=== PATIENT | male | born 1975 | race Hispanic/Latino ===

== ENCOUNTER 2018-07-07 05:59 | Day surgery (SDC) | payer BC, OTHER ==
[2018-07-07] MEDS ORDERED: TETRACAINE 0.5% OD PRN (06:00)
[2018-07-07] MEDS ORDERED: MYDRIACYL OD SCH (06:00)
[2018-07-07] MEDS ORDERED: AK-Dilate OD SCH (06:00)
[2018-07-07] MEDS ORDERED: VIGAMOX OD SCH (06:00)
[2018-07-07] MEDS ORDERED: PRED FORTE 1% OD SCH (10:00)
== END 2018-07-07 06:00 | disposition home or self-care (01) ==
LOC: OR 05:59
DX: H26.9 Unspecified cataract (principal); E78.00 Pure hypercholesterolemia, unspecified; G47.30 Sleep apnea, unspecified; K21.9 Gastro-esophageal reflux disease without esophagitis; I10 Essential (primary) hypertension; Z53.8 Procedure and treatment not carried out for other reasons; Z98.890 Other specified postprocedural states; Z90.49 Acquired absence of other specified parts of digestive tract; Z79.899 Other long term (current) drug therapy; Z98.42 Cataract extraction status, left eye; Z98.41 Cataract extraction status, right eye

== ENCOUNTER 2018-07-21 06:49 | Day surgery (SDC) | payer OTHER ==
[~2018-07-21 06:49] MED LIST: TETRACAINE 0.5% OS PRN
[2018-07-21] MEDS: VIGAMOX OS SCH ×3 (08:40→08:51)
[2018-07-21] MEDS: AK-Dilate OS SCH ×3 (08:42→08:52)
[2018-07-21] MEDS: MYDRIACYL OS SCH ×3 (08:43→08:55)
--- NOTE | 2018-07-21 08:53 | Anesthesia Consultation ---
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) SOB: No COPD: No Home Oxygen Therapy: No Hx Sleep Apnea: Yes (noncompliant with CPAP) - Cardiovascular System Hx Hypertension: Yes (took amlodipine today) Hx Heart Attack/AMI: No Hx Percutaneous Transluminal Coronary Angioplasty (PTCA): No - Central Nervous System Hx Seizures: No CVA: No Hx Psychiatric Problems: Yes - Gastrointestinal Hx Gastroesophageal Reflux Disease: Yes (asymptomatic today) - Endocrine Hx Renal Disease: No Hx Liver Disease: Yes (fatty liver) Hx Insulin Dependent Diabetes: Yes Hx Thyroid Disease: No - Other Systems Hx Obesity: Yes - Additional Comments Anesthesia Medical History Comments: No hx anesthetic complications. No recent steroid use.
--- NOTE | 2018-07-21 08:53 | Anesthesia Day of Surgery ---
Anesthesia Day of Surgery - Day of Surgery Patient Examined: Yes Patient H&P Reviewed: Yes Patient is NPO: Yes
[2018-07-21] MEDS ORDERED: PRED FORTE 1% OS SCH (09:00)
[2018-07-21] MEDS ORDERED: SUBLIMAZE ONE (09:35)
[2018-07-21] MEDS ORDERED: VERSED ONE (09:42)
--- NOTE | 2018-07-21 09:46 | Operative Report ---
Operative Report Operative Report: PATIENT'S NAME: DATE OF : DATE OF SURGERY: 07/21/2018 PREOPERATIVE DIAGNOSIS: Cataract right eye POSTOPERATIVE DIAGNOSIS: Same OPERATIVE PROCEDURE: Phacoemulsification with intraocular lens implantation, right eye SURGEON: Mackenzie Langston M.D. RETURN CLERK SURGEON: Whitley Lens: [id number] 23.5 D ANESTHESIA: Monitored anesthesia care in combination with topical and intracameral anesthesia because of the established specific risk of reflux, arrhythmias, or anxiety attacks associated with ocular manipulation, as well as the difficulty of the bender machine to manage such potentially catastrophic events while simultaneously attempting to complete the surgical procedure and was deemed necessary for the patient's safety to have an Photostatic Copy Maker present during the procedure whenever possible. An Photostatic Copy Maker was utilized to regulate the intravenous sedation of the patient so the patient was cooperative yet not asleep in order for the patient to successfully maintain fixation of the eye on the operating light of the microscope. COMPLICATIONS: No surgical complications No blood loss. ALLERGIES: No known drug allergies PROGNOSIS: Excellent INDICATIONS FOR SURGERY: The patient is undergoing surgery in the hopes of eliminating or improving these visual difficulties. PROCEDURE: After arriving at the surgery center, the patient was given topical anesthetic and dilating drops, as noted in the record. The patient was then taken into the operating room and given more anesthetic drops. The eyelids, lashes, and lid margins were scrubbed with Betadine solution, and the patient was draped. The Nurse Photostatic Copy Maker administered IV sedation and monitored the patient during the procedure. The eye was then fixated with a 0.12, and a stab incision was made in the peripheral clear cornea into the anterior chamber. This was made on my left side. Viscoelastic was next used to fill the anterior chamber. The eye was once again fixated with the 0.12 forceps and a keratome was used make an incision in clear cornea peripherally on my right hand side temporally. The capsule forceps were used to open the central anterior capsule and then make a continuous round capsulotomy. Hydrodissection was carried out utilizing a cannula and balanced salt solution to delineate the cortical material from the capsule and the nucleus from the cortical material. The phaco tip was introduced into the eye and used to remove the anterior cortical material in the area of the capsulotomy. Then the phaco tip was buried into the nucleus, and a chopping instrument was introduced into the eye and used to provide countertraction in the nucleus between this instrument and the phaco tip fracturing the nucleus. This procedure was repeated multiple times, providing multiple small segments of the lens, and then the phaco tip was used to remove each of these segments. An I/A tip was then used to remove the remaining cortex. The anterior chamber was refilled with viscoelastic. An one-piece, acrylic intraocular lens was then placed into an inserting cartridge. The tip of the inserting cartridge was introduced into the keratome incision and into the anterior chamber. The implant was gently advanced through the cartridge and into the eye, where it unfolded, and both haptics were placed in the capsular bag, where it centered nicely and appeared to be well fixated. After placement of the intraocular lens, the I~and~A handpiece was placed back into the eye and used to remove the viscoelastic, including viscoelastic that was behind the optic of the intraocular lens. The anterior chamber was then filled with balanced salt solution, and hydration of the wound was used to cause swelling of the wound and more appropriate watertight closure. When the wound was found to be firm, the patient was asked to comment on how bright the light was. If there was no light perception at all or if the light was substantially dimmer than during the rest of the surgery, the amount of fluid in the eye was decompressed to lower the intraocular pressure until the patient could see the b right light again. This was done to avoid any damage or decreased blood flow to the optic nerve. MEDICATIONS APPLIED AT END OF SURGERY: One drop of Pred Forte and Vigamox The patient was given a shield to wear at night and was instructed not to rub or push on the eye. DISCHARGE SUMMARY: The patient was released in stable condition. The patient and those with the patient were given a written sheet of postoperative instructions and counseling on any abnormal laboratory studies. The patient is to see us tomorrow for follow-up in the office and is to call immediately for any difficulties. Mackenzie Langston M.D. Date
--- NOTE | 2018-07-21 09:47 | Short Stay Summary ---
Short Stay Documentation Date of service: 07/21/18 - History H&P: obtained from office - Allergies and Medications Current Medications: Allergies No Known Allergies Allergy (Unverified 07/18/18 16:05) Home Medications Medication Instructions Recorded Confirmed Last Taken Type ALPRAZolam [Xanax TAB] 0.5 mg PO TID 07/06/18 07/18/18 Unknown History ARIPiprazole [Abilify] 15 mg PO HS 07/06/18 07/18/18 Unknown History Albuterol Sulfate [Ventolin HFA] 2 puff IH Q4H PRN 07/06/18 07/18/18 Unknown History Cholestyramine (with Sugar) 378 gm PO DAILY 07/06/18 07/18/18 Unknown History [Cholestyramine Powder] Corticotropin [H.p. Acthar] 80 unit IM Q72H 07/06/18 07/18/18 Unknown History Dicyclomine [Bentyl] 20 mg PO TID 07/06/18 07/18/18 Unknown History Ergocalciferol(Vitamin D2)(Nf) 50 mcg PO DAILY 07/06/18 07/18/18 Unknown History [Vitamin D (Nf)] Escitalopram Oxalate [Lexapro] 20 mg PO HS 07/06/18 07/18/18 Unknown History Fluticasone/Umeclidin/Vilanter 1 each IH DAILY 07/06/18 07/18/18 Unknown History [Trelegy Ellipta 100-62.5-25] Fluvoxamine Maleate [fluvoxaMINE 100 mg PO BID 07/06/18 07/18/18 Unknown History Maleate ER] Folic Acid [Folvite] 1 mg PO QDAY 07/06/18 07/18/18 Unknown History Gabapentin [Neurontin] 100 mg PO HS 07/06/18 07/18/18 Unknown History Insulin Lispro [Humalog 100 10 units SQ BID 07/06/18 07/18/18 Unknown History UNITS/ML Kwikpen] Mesalamine [LiALDA] 4 tab PO AMHY 07/06/18 07/18/18 Unknown History Multivit-Mins/Iron/Folic/Lycop 1 each PO DAILY 07/06/18 07/18/18 Unknown History [Centrum Men's Tablet] Omeprazole 20 mg PO DAILY 07/06/18 07/18/18 Unknown History Pentosan Polysulfate Sodium 200 mg PO BID 07/06/18 07/18/18 Unknown History [Elmiron] Sitagliptin Phos/Metformin HCl 1 each PO BID 07/06/18 07/18/18 Unknown History [Janumet 50-1,000 mg Tablet] Tamsulosin [Flomax] 0.4 mg PO HS 07/06/18 07/18/18 Unknown History amLODIPine [Norvasc] 10 mg PO DAILY 07/06/18 07/18/18 Unknown History lamoTRIgine [LaMICtal] 100 mg PO BID 07/06/18 07/18/18 Unknown History predniSONE [Deltasone] 20 mg PO QDAY 07/06/18 07/18/18 Unknown History traZODone [Desyrel] 150 mg PO QHS 07/06/18 07/18/18 Unknown History Active Medications Moxifloxacin HCl (Vigamox) 1 drops OS Q5MIN KASAN[facility]A Stop: 07/21/18 23:59 Phenylephrine HCl (Ak-Dilate) 1 drops OS Q5MIN [facility] Stop: 07/21/18 23:59 Prednisolone Acetate (Pred Forte 1%) 1 drops OS QID KASANDRA Tetracaine HCl (Tetracaine 0.5%) 1 drops OS Q5M PRN PRN Reason: Pain, Mild (1-3) Stop: 07/21/18 23:59 Tropicamide (Mydriacyl) 1 drops OS Q5MIN [facility] Stop: 07/21/18 23:59 - Brief post op/procedure progress note Date of procedure: 07/21/18 Pre-op diagnosis: left cataract Post-op diagnosis: same Procedure: Phacoemulsification with intraocular lens insertion left eye Anesthesia: MAC, local Surgeon: JESSICA FRANCISCO Estimated blood loss: none Pathology: none Condition: stable - Disposition Condition at discharge: Good Disposition: DC-01 TO HOME OR SELFCARE - Discharge Diagnoses (1) Cortical age-related cataract of left eye Status: Resolved Short Stay Discharge Plan Follow up with: MARNI SILVESTRE MD [Primary Care Provider] - 7 Days
[2018-07-21] MEDS ORDERED: TIMOPTIC OS ONE (11:00)
[2018-07-21] MEDS ORDERED: NORCO 5/325 PO ONE (11:30)
--- NOTE | 2018-07-21 11:32 | Post Anesthesia Evaluation ---
- Post Anesthesia Evaluation Patient Participated: Yes Airway Patent: Yes Stable Respiratory Function: Yes Nausea/Vomiting: No Temp > 96.8F: Yes Pain Manageable: Yes Adequeate Hydration: Yes Anesthesia Complications: No Other Comments: Complained of left eye pain while in recovery which was evaluated by Dr. Langston prior to d/c.
[2018-07-21] MEDS ORDERED: DIAMOX ONE (12:55)
[2018-07-21] MEDS ORDERED: DIAMOX PO ONE (19:50)
[2018-07-21 19:53] VITALS: BP 137/85
== END 2018-07-21 11:12 | disposition home or self-care (01) ==
LOC: OR 06:49
DX: H25.012 Cortical age-related cataract, left eye (principal); E78.00 Pure hypercholesterolemia, unspecified; I10 Essential (primary) hypertension; G47.30 Sleep apnea, unspecified; K21.9 Gastro-esophageal reflux disease without esophagitis; E11.36 Type 2 diabetes mellitus with diabetic cataract; E66.9 Obesity, unspecified; Z68.33 Body mass index [BMI] 33.0-33.9, adult; Z79.899 Other long term (current) drug therapy; Z79.4 Long term (current) use of insulin; Z79.01 Long term (current) use of anticoagulants; Z98.41 Cataract extraction status, right eye; Z98.42 Cataract extraction status, left eye; Z90.49 Acquired absence of other specified parts of digestive tract; Z98.890 Other specified postprocedural states
CPT/HCPCS: 66984; 82962; J2250; J3010; V2632

== ENCOUNTER 2019-11-21 13:59 | Emergency (ER) | payer OTHER ==
[2019-11-21 15:43] LABS: Hematocrit 44.3 % (35.5-45.6); Hemoglobin 14.6 gm/dl (11.8-15.2); Mean Corpuscular HGB Conc 33 % (32-34); Mean Corpuscular Volume 85 fl (84-94); Platelet Count 371 K/mm3 (140-440); Red Blood Count 5.23 M/mm3 (3.65-5.03); Red Cell Distribution Width 18.8 % (13.2-15.2)
[2019-11-21 16:01] LABS: Alanine Aminotransferase 123 units/L (7-56); Albumin 4.7 g/dL (3.9-5); BUN/Creatinine Ratio 20; Blood Urea Nitrogen 18 mg/dL (9-20); Calcium 9.7 mg/dL (8.4-10.2); Hemolysis Index 15
[2019-11-21 17:05] LABS: Eosinophils % (Manual) 0 % (0.0-4.3); Total Cells Counted 100
[2019-11-21 17:06] LABS: Anisocytosis 1+; Macrocytosis Few
[2019-11-21 17:07] LABS: Ovalocytes 1+; Tear Drop Cells Rare
[2019-11-21 17:08] LABS: Large Platelets 1+; Platelet Estimate Consistent w Auto
[2019-11-21] MEDS ORDERED: METOCLOPRAMIDE 10 MG/2 ML INJ IV ONE (17:42)
[2019-11-21] MEDS ORDERED: HYOSCYAMINE SUBL 0.125 MG TAB SL ONE (17:42)
[2019-11-21] MEDS ORDERED: SODIUM CHLORIDE 0.9% 1000 ML 1,000 ML IV ONE (17:42)
[2019-11-21] MEDS ORDERED: MORPHINE 4 MG/1 ML INJ IV ONE (17:43)
--- NOTE | 2019-11-21 18:09 | Emergency Department Report ---
<LAUREN JACOBSON - Last Filed: 11/21/19 19:08> ED N/V/D HPI - General Chief complaint: Abdominal Pain Stated complaint: ABD PAIN Time Seen by Provider: 11/21/19 17:34 Source: patient, EMS Mode of arrival: Wheelchair Limitations: No Limitations - History of Present Illness Initial comments: Patient is a 44-year-old male presents emergency room with complaints of nausea, vomiting, diarrhea that began 4 days ago. He has associated generalized abdominal discomfort. He states that he has not had an episode of vomiting for approximately 8 hours. He states that 4 days ago he had an episode of bright red blood in the stool and states that his stool has appeared darker in color. He states that 5 days ago he had a iron infusion. He states that he went to [facility] a few days ago and had a CT scan at that time which she states was normal. He states that he went to another ER yesterday and had another CT scan which he states was again normal. He states that he cannot get an appointment with his GI doctor at [facility] until December 24. He has been prescribed Percocet and Zofran by another ER. He states that it is not helping. Patient received 12 tablets of oxycodone on 11/16 and 25 tablets of oxycodone on 10/26. He does not report any fever, hematemesis, pus in the stool. he denies any recent travel or sick contacts. - Related Data Home Medications Medication Instructions Recorded Confirmed Last Taken ALPRAZolam [Xanax TAB] 0.5 mg PO TID 07/06/18 07/21/18 07/20/18 ARIPiprazole [Abilify] 15 mg PO HS 07/06/18 07/21/18 07/21/18 Albuterol Sulfate [Ventolin HFA] 2 puff IH Q4H PRN 07/06/18 07/21/18 07/07/18 Cholestyramine (with Sugar) 378 gm PO DAILY 07/06/18 07/21/18 07/20/18 [Cholestyramine Powder] Corticotropin [H.p. Acthar] 80 unit IM Q72H 07/06/18 07/21/18 07/21/18 Dicyclomine [Bentyl] 20 mg PO TID 07/06/18 07/21/18 07/18/18 Ergocalciferol(Vitamin D2)(Nf) 50 mcg PO DAILY 07/06/18 07/21/18 07/20/18 [Vitamin D (Nf)] Escitalopram Oxalate [Lexapro] 20 mg PO HS 07/06/18 07/21/18 07/20/18 Fluticasone/Umeclidin/Vilanter 1 each IH DAILY 07/06/18 07/21/18 07/20/18 [Trelegy Ellipta 100-62.5-25] Fluvoxamine Maleate [fluvoxaMINE 100 mg PO BID 07/06/18 07/21/18 07/20/18 Maleate ER] Folic Acid [Folvite] 1 mg PO QDAY 07/06/18 07/21/18 07/20/18 Gabapentin [Neurontin] 100 mg PO HS 07/06/18 07/21/18 07/20/18 Insulin Lispro [Humalog 100 10 units SQ BID 07/06/18 07/21/18 07/20/18 UNITS/ML Kwikpen] Mesalamine [LiALDA] 4 tab PO AMHY 07/06/18 07/21/18 07/20/18 Multivit-Mins/Iron/Folic/Lycop 1 each PO DAILY 07/06/18 07/21/18 07/20/18 [Centrum Men's Tablet] Omeprazole 20 mg PO DAILY 07/06/18 07/21/18 07/20/18 Pentosan Polysulfate Sodium 200 mg PO BID 07/06/18 07/21/18 07/20/18 [Elmiron] Sitagliptin Phos/Metformin HCl 1 each PO BID 07/06/18 07/21/18 07/20/18 [Janumet 50-1,000 mg Tablet] Tamsulosin [Flomax] 0.4 mg PO HS 07/06/18 07/21/18 07/20/18 amLODIPine [Norvasc] 10 mg PO DAILY 07/06/18 07/21/18 07/21/18 06:00 lamoTRIgine [LaMICtal] 100 mg PO BID 07/06/18 07/21/18 07/20/18 predniSONE [Deltasone] 20 mg PO QDAY 01/09/19 01/24/19 01/23/19 traZODone [Desyrel] 150 mg PO QHS 07/06/18 07/21/18 07/14/18 Previous Rx's Medication Instructions Recorded Last Taken Type Famotidine [Pepcid] 40 mg PO QHS #14 tablet 11/21/19 Unknown Rx Hyoscyamine Subl [Levsin Sl 0.125 0.125 mg SL Q6HR PRN #10 tab 11/21/19 Unknown Rx TAB] Promethazine HCl [Phenergan SUPPOS] 25 mg RC Q8HR PRN #10 supp.rect 11/21/19 Unknown Rx Sucralfate [Carafate] 1 gm PO ACHS 7 Days #21 tablet 11/21/19 Unknown Rx Allergies Allergy/AdvReac Type Severity Reaction Status Date / Time mesalamine [From Pentasa] Allergy Unknown Verified 11/21/19 14:40 metronidazole [From Flagyl] Allergy Unknown Verified 11/21/19 14:40 pantoprazole [From Protonix] Allergy Unknown Verified 11/21/19 14:40 Penicillins Allergy Unknown Verified 11/21/19 14:40 ED Review of Systems Comment: All other systems reviewed and negative ED Past Medical Hx - Past Medical History Previous Medical History?: Yes Hx Hypertension: Yes (took amlodipine today) Hx Heart Attack/AMI: No Hx Diabetes: Yes Hx GERD: Yes Hx Liver Disease: Yes (fatty liver) Hx Renal Disease: No Hx Headaches / Migraines: Yes (As a child) Hx Seizures: No Hx Psychiatric Treatment: Yes (bipolar) Hx Asthma: Yes (childhood; no recent symptoms) Hx COPD: No Additional medical history: Chron's. scarcodosis - Surgical History Past Surgical History?: Yes Hx Cholecystectomy: Yes Hx Appendectomy: Yes - Social History Smoking Status: Never Smoker Substance Use Type: None - Medications Home Medications: Home Medications Medication Instructions Recorded Confirmed Last Taken Type ALPRAZolam [Xanax TAB] 0.5 mg PO TID 07/06/18 07/21/18 07/20/18 History ARIPiprazole [Abilify] 15 mg PO HS 07/06/18 07/21/18 07/21/18 History Albuterol Sulfate [Ventolin HFA] 2 puff IH Q4H PRN 07/06/18 07/21/18 07/07/18 History Cholestyramine (with Sugar) 378 gm PO DAILY 07/06/18 07/21/18 07/20/18 History [Cholestyramine Powder] Corticotropin [H.p. Acthar] 80 unit IM Q72H 07/06/18 07/21/18 07/21/18 History Dicyclomine [Bentyl] 20 mg PO TID 07/06/18 07/21/18 07/18/18 History Ergocalciferol(Vitamin D2)(Nf) 50 mcg PO DAILY 07/06/18 07/21/18 07/20/18 History [Vitamin D (Nf)] Escitalopram Oxalate [Lexapro] 20 mg PO HS 07/06/18 07/21/18 07/20/18 History Fluticasone/Umeclidin/Vilanter 1 each IH DAILY 07/06/18 07/21/18 07/20/18 History [Trelegy Ellipta 100-62.5-25] Fluvoxamine Maleate [fluvoxaMINE 100 mg PO BID 07/06/18 07/21/18 07/20/18 History Maleate ER] Folic Acid [Folvite] 1 mg PO QDAY 07/06/18 07/21/18 07/20/18 History Gabapentin [Neurontin] 100 mg PO HS 07/06/18 07/21/18 07/20/18 History Insulin Lispro [Humalog 100 10 units SQ BID 07/06/18 07/21/18 07/20/18 History UNITS/ML Kwikpen] Mesalamine [LiALDA] 4 tab PO AMHY 07/06/18 07/21/18 07/20/18 History Multivit-Mins/Iron/Folic/Lycop 1 each PO DAILY 07/06/18 07/21/18 07/20/18 History [Centrum Men's Tablet] Omeprazole 20 mg PO DAILY 07/06/18 07/21/18 07/20/18 History Pentosan Polysulfate Sodium 200 mg PO BID 07/06/18 07/21/18 07/20/18 History [Elmiron] Sitagliptin Phos/Metformin HCl 1 each PO BID 07/06/18 07/21/18 07/20/18 History [Janumet 50-1,000 mg Tablet] Tamsulosin [Flomax] 0.4 mg PO HS 07/06/18 07/21/18 07/20/18 History amLODIPine [Norvasc] 10 mg PO DAILY 07/06/18 07/21/18 07/21/18 06:00 History lamoTRIgine [LaMICtal] 100 mg PO BID 07/06/18 07/21/18 07/20/18 History predniSONE [Deltasone] 20 mg PO QDAY 07/06/18 07/21/18 07/20/18 History traZODone [Desyrel] 150 mg PO QHS 07/06/18 07/21/18 07/14/18 History Famotidine [Pepcid] 40 mg PO QHS #14 tablet 11/21/19 Unknown Rx Hyoscyamine Subl [Levsin Sl 0.125 0.125 mg SL Q6HR PRN #10 tab 11/21/19 Unknown Rx TAB] Promethazine HCl [Phenergan SUPPOS] 25 mg RC Q8HR PRN #10 supp.rect 11/21/19 Unknown Rx Sucralfate [Carafate] 1 gm PO ACHS 7 Days #21 tablet 11/21/19 Unknown Rx ED Physical Exam - General Limitations: No Limitations General appearance: alert, in no apparent distress - Head Head exam: Present: atraumatic, normocephalic - Eye Eye exam: Present: normal appearance - ENT ENT exam: Present: mucous membranes moist - Respiratory Respiratory exam: Present: normal lung sounds bilaterally. Absent: respiratory distress, wheezes, rales, rhonchi, stridor, chest wall tenderness, accessory muscle use, decreased breath sounds, prolonged expiratory - Cardiovascular Cardiovascular Exam: Present: regular rate, normal rhythm, normal heart sounds. Absent: systolic murmur, diastolic murmur, rubs, gallop - GI/Abdominal GI/Abdominal exam: Present: soft, tenderness (mild generalized), normal bowel sounds. Absent: distended, guarding, rebound, rigid - Rectal Rectal exam: Present: normal rectal tone, heme (-) stool, other (dredgemaster: Julius, EMT, no gross blood, small amount brown/yellow loose stool, hemocult is negative). Absent: black stool, bloody stool, hemorrhoids, mass, tenderness - Neurological Exam Neurological exam: Present: alert, oriented X3 - Psychiatric Psychiatric exam: Present: normal affect, normal mood - Skin Skin exam: Present: warm, dry, intact ED Medical Decision Making - Lab Data Result diagrams: 11/21/19 15:03 11/21/19 15:03 ED Disposition Clinical Impression: Nausea vomiting and diarrhea, Rectal bleeding Abdominal pain Qualifiers: Abdominal location: generalized Qualified Code(s): R10.84 - Generalized abdominal pain Disposition: DC-01 TO HOME OR SELFCARE Is pt being admited?: No Does the pt Need Aspirin: No Condition: Stable Instructions: Acute Nausea and Vomiting (ED), Acute Diarrhea (ED), Abdominal Pain (ED) Additional Instructions: Please take medication as prescribed. Increase your fluid intake. Please eat a liquid diet for the next couple of days and slowly advance your diet as tole rated. Avoid anything sugary or greasy. Follow-up with your primary care doctor. Follow-up with a GI doctor. Return to the emergency room for any new or worsening symptoms. Prescriptions: Famotidine [Pepcid] 40 mg PO QHS #14 tablet Sucralfate [Carafate] 1 gm PO ACHS 7 Days #21 tablet Hyoscyamine Subl [Levsin Sl 0.125 TAB] 0.125 mg SL Q6HR PRN #10 tab PRN Reason: abdominal cramping/diarrhea Promethazine HCl [Phenergan SUPPOS] 25 mg RC Q8HR PRN #10 supp.rect PRN Reason: Nausea And Vomiting Referrals: [facility] [Provider Group] - 3-5 Days JAKY GORDON [Other] - 3-5 Days Time of Disposition: 19:08 Print Language: DANISH <NIDHIJOSE DAVID ALEGRE - Last Filed: 11/21/19 19:46> ED Review of Systems ROS: Stated complaint: ABD PAIN Other details as noted in HPI ED Course Vital Signs 11/21/19 11/21/19 14:35 19:34 Temperature 98.7 F 98.0 F Pulse Rate 88 77 Respiratory 14 16 Rate Blood Pressure 148/92 Blood Pressure 143/70 [Left] O2 Sat by Pulse 95 99 Oximetry - Reevaluation(s) Reevaluation #1: 11/21/19 19:43 Patient reportedly had 2- CT scan of the abdomen pelvis within the recent past, as per verbal report from physician home health assistant. As per GI on-call, Dr. Saleh, the patient does not have biopsy-proven ulcerative colitis, and has demonstrated extreme narcotic seeking tendencies, to the point where he has been kicked out of other hospitals, such as [facility]. We all agree that based off of the objective evidence and exam at this time the patient does not require or meet criteria for hospitalization, he will need to follow-up as an outpatient for his chronic pain. ED Medical Decision Making - Lab Data Result diagrams: 11/21/19 15:03 11/21/19 15:03 Critical care attestation.: If time is entered above; I have spent that time in minutes in the direct care of this critically ill patient, excluding procedure time. ED Disposition Is pt being admited?: No Does the pt Need Aspirin: No
[2019-11-21 18:58] LABS: Bilirubin,Urine NEG (Negative); Blood,Urine NEG (Negative); Color,Urine Yellow (Yellow); Mucus,Urine 1+ /HPF; Protein,Urine <15 mg/dL mg/dL (Negative); Urobilinogen,Urine < 2.0 mg/dL (<2.0)
[2019-11-21 19:35] VITALS: BP 143/70
== END 2019-11-21 19:35 | disposition home or self-care (01) ==
LOC: ED 13:59
DX: R11.2 Nausea with vomiting, unspecified (principal); K62.5 Hemorrhage of anus and rectum; R19.7 Diarrhea, unspecified; R10.84 Generalized abdominal pain; I10 Essential (primary) hypertension; E11.9 Type 2 diabetes mellitus without complications; K21.9 Gastro-esophageal reflux disease without esophagitis; G43.909 Migraine, unspecified, not intractable, without status migrainosus; F31.9 Bipolar disorder, unspecified; J45.909 Unspecified asthma, uncomplicated; Z90.49 Acquired absence of other specified parts of digestive tract; Z79.4 Long term (current) use of insulin; Z79.84 Long term (current) use of oral hypoglycemic drugs; Z79.899 Other long term (current) drug therapy; Z88.0 Allergy status to penicillin; Z88.8 Allergy status to other drugs, medicaments and biological substances
CPT/HCPCS: 36415; 80053; 81001; 82271; 83690; 85007; 85025; 96361; 96374; 96375; 99284; J2270; J2765; J7030